=== PATIENT | male | born 1960 | race Two or more races ===

== ENCOUNTER 2017-12-19 14:20 | Inpatient (IN) | payer OTHER ==
[~2017-12-19] VITALS: Ht 160 cm; Wt 77.6 kg
--- NOTE | 2017-12-19 15:30 | NUR ---
RN NOTES RECEIVED REPORTS FROM JUAN COX ([facility]) FOR PATIENT GETTING ADMITTED UNDER THE CARE OF LISA BELLO NP DIAGNOSED WITH PNEUMONIA WITH POSSIBLE TUBERCULOSIS WITH MED SURG ACUITY. BED ZERO-ED OUT. ROOM PREPARED. ISOLATION KIT MADE AVAILABLE. AWAITING PATIENT ARRIVAL.
--- NOTE | 2017-12-19 18:10 | NUR ---
RN NOTES RECEIVED PATIENT VIA GURNEY ACCOMPANIED BY 2 EMT. TRANSPORTED TO BED, MADE COMFORTABLE, AWAKE AND ORIENTED, ABLE TO MAKE NEEDS KNOWN, BREATHING UNLABORED, ON NASAL CANNULA WITH 2 LPM, SATURATING AT 95%, DENIES ANY FORM OF PAIN AT THIS TIME, COMPLAINTS OF HUNGER, INFORMED HIM THAT FOOD WILL BE GIVEN SOON ORDERED IS OBTAINED FROM THE MD. VITAL SIGNS ARE FOLLOWS BP AT 118/ 68, HR AT 95, TEMP AT 98.3, RR AT 17. PHOTOS TAKEN. PATIENT KEEP CLEANED AND COMFORTABLE. ORIENTED TO FLOOR, CALL LIGHT PLACED WITHIN EASY REACH, SAFETY MEASURES IN PLACED.
[2017-12-19] MEDS ORDERED: TEMA15CA PO (18:12)
[2017-12-19] MEDS ORDERED: BLOO-668 IN (18:12)
[2017-12-19] MEDS ORDERED: ONDA4VIA52 IV (18:12)
[2017-12-19] MEDS ORDERED: INSU100V7 SQ (18:12)
[2017-12-19] MEDS ORDERED: DEXA1TAB2 PO (18:12)
[2017-12-19] MEDS ORDERED: ALBU1.257 IH (18:12)
[2017-12-19] MEDS ORDERED: IPRA0.2S9 IH (18:12)
[2017-12-19] MEDS ORDERED: DIVA-76 PO (18:12)
[2017-12-19] MEDS ORDERED: QUET25TA PO (18:12)
[2017-12-19] MEDS ORDERED: ALBU2.5V38 IH (18:12)
[2017-12-19] MEDS ORDERED: INSU100V27 SQ (18:12)
[2017-12-19] MEDS ORDERED: ACET-868 PO ×2 (18:12)
[2017-12-19] MEDS ORDERED: VANC1VIA2 IV (18:20)
[2017-12-19] MEDS ORDERED: PANT40TA4 PO (18:20)
[2017-12-19] MEDS ORDERED: POLY17PO4 PO (18:20)
[2017-12-19] MEDS ORDERED: LEVE500T9 PO (18:20)
[2017-12-19] MEDS ORDERED: ALEC150C PO (18:20)
[2017-12-19] MEDS ORDERED: METO25TA20 PO (18:20)
[2017-12-19] MEDS ORDERED: LORA0.5T PO (18:20)
[2017-12-19] MEDS ORDERED: NICO-677 TD (18:20)
[2017-12-19] MEDS ORDERED: SENN-168 PO (18:21)
--- NOTE | 2017-12-19 19:30 | NUR ---
RN NOTES ENDORSED PATIENT FOR CONTINUITY OF CARE, NO ACUTE CHANGES. NO SOB OR . NO COMPLAINTS OF PAIN, CALL LIGHT WITHIN REACH. SAFETY MEASURES IN PLACE, AWAITING FOR MD ORDERS. PAST MEDICAL HISTORY NOT OBTAINED-WILL ENDORSED TO INCOMING SHIFT.
[2017-12-19 20:00] VITALS: BP 117/68
--- NOTE | 2017-12-19 20:04 | NUR ---
RN INITIAL MS NOTE RECEIEVED PT ON AIRBORNE PRECAUTION, AOX4, ON NC@ 2LPM ,HX COPD, PT ADMIT FOR POSSIBLE TB, ACCORDING TO SHAQ RN ADMITTING ORDERS NOT INPUT YET, NOT SURE WHO IS ADMITTING PT, CHARLES NEW RN CALLED DR WEINSTEIN, DR WEINSTEIN OKAY TO ADMIT PT, PT UPSET NO FOOD, DR WEINSTEIN ORDERED 1800 MARLENE DIET, PT OFFERED TUNA AN D EGG SANDWICH REFUSED, SUGGESTED TO CALL SISTER TO ORDER FOOD FOR PT THROUGH DELIVERY, AWAITING FOR ADMITTING ORDERS.
[2017-12-19] MEDS ORDERED: IPRATROPIUM NEB FS 0.5 MG/2.5 ML AMPUL.NEB IH PRN (20:30)
[2017-12-19] MEDS ORDERED: LORAZEPAM 0.5 MG TABLET PO PRN (20:30)
[2017-12-19] MEDS ORDERED: ONDANSETRON HCL/PF 4 MG/2 ML VIAL IV PRN (20:30)
[2017-12-19] MEDS ORDERED: ONDANSETRON HCL/PF 4 MG/2 ML VIAL IVP PRN (21:00)
[2017-12-19] MEDS ORDERED: MAGNESIUM HYDROXIDE 30 ML UDC PO PRN (21:00)
[2017-12-19] MEDS ORDERED: Z GUARD REMEDY 2 OZ OINT TP PRN (21:00)
[2017-12-19] MEDS ORDERED: VANCOMYCIN 1 GM VIAL IV SCH (21:00)
[2017-12-19] MEDS ORDERED: MAG HYDROX/AL HYDROX/SIMETH 30 ML UDC PO PRN (21:00)
[2017-12-19] MEDS: LEVETIRACETAM (250 MG) 250 MG TABLET PO SCH (21:34)
[2017-12-19] MEDS: DEXAMETHASONE 1 MG TABLET PO SCH (21:34)
[2017-12-19] MEDS: SENNOSIDES 8.6 MG TABLET PO SCH (21:34)
[2017-12-19] MEDS: DIVALPROEX SODIUM 250 MG TABLET.DR PO SCH (21:35)
[2017-12-19] MEDS: QUETIAPINE FUMARATE 25 MG TABLET PO SCH (21:35)
[2017-12-19] MEDS ORDERED: DEXTROSE 50%-WATER 50 ML DISP.SYRIN IV PRN (22:00)
[2017-12-19] MEDS ORDERED: ENOXAPARIN SODIUM 100 MG/ML DISP.SYRIN SQ ONE (22:00)
[2017-12-19] MEDS: BLOOD SUGAR DIAGNOSTIC 1 EACH STRIP IN SCH (22:08)
[2017-12-19] MEDS: INSULIN GLARGINE, 100 UNIT/ML CARTRIDGE SQ SCH (22:17)
[2017-12-19 22:35] LABS: CALCIUM, SERUM 8.5 mg/dL (8.5-10.1); CREATININE 0.9 mg/dL (0.6-1.3); POTASSIUM 3.2 mmol/L (3.5-5.1)
[2017-12-19] MEDS: INSULIN REGULAR, HUMAN 100 UNIT/ML 3 ML VIAL SQ PRN (22:35)
[2017-12-19] MEDS ORDERED: PIPERACILLIN /TAZOBACTAM 3.375 G VIAL IV ONE (23:50)
[2017-12-19] MEDS: PIPERACILLIN /TAZOBACTAM 3.375 G in IV D5W 50 ML IV SCH (23:56)
[2017-12-20] MEDS ORDERED: ALBUTEROL FS 2.5 MG/0.5 ML VIAL.NEB NEB PRN (01:30)
[2017-12-20] MEDS ORDERED: PIPERACILLIN /TAZOBACTAM 3.375 G VIAL IV ONE (03:55)
[2017-12-20 04:00] VITALS: BP_SYST 117; BP_SYST 134; BP_DIAS 68; BP_DIAS 80
[2017-12-20] MEDS ORDERED: VANCOMYCIN 1 GM VIAL ONE (04:02)
[2017-12-20] MEDS ORDERED: VANCOMYCIN 1.5 GM in IV D5W 500 ML IV ONE (05:00)
[2017-12-20] MEDS: PIPERACILLIN /TAZOBACTAM 3.375 G in IV D5W 50 ML IV SCH ×4 (06:16→23:54)
--- NOTE | 2017-12-20 07:02 | NUR ---
RN MS CLOSING NOTE PT W/AFB SPUTUM COLLECTION, OFFERED TO SUCTION PT, REFUSED, INSISTED HE WILL BE ABLE TO PROVIDE SPUTUM, PT UNDERSTAND IMPORTANCE OF COLLECTION, TRIED TO COUGH, STIMULATED NAUSEA, HAD HEMOPYTSIS X2 BUT COLLECTED IN CONTAINER AND SPILLED IT ON THE FLOOR, UNABLE TO OBTAIN SAMPLE
[2017-12-20] MEDS ORDERED: FEE PK DOSING 1 MIN EA MC ONE (07:52)
[2017-12-20 08:00] VITALS: BP 130/75
[2017-12-20] MEDS: BLOOD SUGAR DIAGNOSTIC 1 EACH STRIP IN SCH ×4 (08:02→20:46)
[2017-12-20] MEDS: INSULIN REGULAR, HUMAN 100 UNIT/ML 3 ML VIAL SQ PRN ×4 (08:03→20:55)
[2017-12-20] MEDS: INSULIN GLARGINE, 100 UNIT/ML CARTRIDGE SQ SCH ×2 (08:04→20:52)
[2017-12-20] MEDS: METOPROLOL TARTRATE 25 MG TABLET PO SCH ×2 (08:09→16:05)
[2017-12-20] MEDS: POLYETHYLENE GLYCOL 3350 17 GM POWD.PACK PO SCH (08:09)
[2017-12-20] MEDS: DIVALPROEX SODIUM 250 MG TABLET.DR PO SCH ×2 (08:10→20:26)
[2017-12-20] MEDS: LEVETIRACETAM (250 MG) 250 MG TABLET PO SCH ×2 (08:10→20:26)
[2017-12-20] MEDS: PANTOPRAZOLE 40 MG TABLET.DR PO SCH (08:11)
[2017-12-20] MEDS: DEXAMETHASONE 1 MG TABLET PO SCH ×2 (08:11→20:26)
[2017-12-20] MEDS ORDERED: [UNRECOGNIZED DRUG - OTHER] PO SCH (09:00)
[2017-12-20] MEDS ORDERED: NICOTINE PATCH (21MG) 21 MG PATCH.TD24 TD SCH (09:00)
[2017-12-20] MEDS: NICOTINE PATCH (21MG) 21 MG PATCH.TD24 TD SCH (09:16)
[2017-12-20 10:03] LABS: BASOPHILS # (AUTO) 0.2 /CMM (0.0-0.2); BASOPHILS % (AUTO) 1.8 % (0.0-2.0); HEMATOCRIT 30 % (39-51); HEMOGLOBIN 10.2 g/dL (13.5-17.5); LYMPHOCYTES # (AUTO) 1.9 /CMM (0.8-4.8); LYMPHOCYTES % (AUTO) 14.5 % (20.0-44.0); MEAN CORPUSCULAR HGB CONC 34 g/dl (31.0-36.0); MEAN CORPUSCULAR VOLUME 92 fL (80-96); MONOCYTES # (AUTO) 0.4 /CMM (0.1-1.30); MONOCYTES % (AUTO) 2.8 % (2.0-12.0); NEUTROPHILS # (AUTO) 10.7 /CMM (1.8-8.9); NEUTROPHILS % (AUTO) 80.9 % (43.0-81.0); PLATELET COUNT (AUTO) 245 /CMM (150-450); RDW COEFFICIENT OF VARIATION 21.6 (11.5-15.0); RED BLOOD CELL COUNT(AUTO) 3.25 MIL/uL (4.5-6.0); WHITE BLOOD COUNT (AUTO) 13.2 K/uL (4.3-11.0)
[2017-12-20 10:13] LABS: CALCIUM, SERUM 8.5 mg/dL (8.5-10.1); CARBON DIOXIDE 29 mmol/L (21-32); CHLORIDE 99 mmol/L (98-107); CREATININE 0.8 mg/dL (0.6-1.3); GLUCOSE 311 mg/dL (74-106); MAGNESIUM 1.7 mg/dL (1.8-2.4); PHOSPHORUS 3.9 mg/dL (2.5-4.9); POTASSIUM 3.7 mmol/L (3.5-5.1); SODIUM SERUM 139 mmol/L (136-145); UREA NITROGEN, BLOOD 16 mg/dL (7-18)
[2017-12-20 10:28] LABS: CHOLESTEROL 322 mg/dL (<200); HDL CHOLESTEROL 45 mg/dL (40-60); LDL 143 mg/dL (0-99)
[2017-12-20 11:02] LABS: TRIGLYCERIDES 1281 mg/dL (30-150)
--- NOTE | 2017-12-20 11:40 | NUR ---
RN NOTES LACTIC ACID OF 4.1 RELAYED TO LISA BELLO NP, NO NEW ORDER AT THIS TIME. PER MD, PATIENT HAD ELEVATED LACTIC AT VIKING, NOT FROM INFECTION PER DR. MOSQUEDA. CLARIFIED ALECTINIB MEDICATION, PER SISTER AND BHARGAVI'S RECORD, PATIENT TAKES 4 CAPSULES BID. WAITING FOR ORDER.
[2017-12-20] MEDS: ENOXAPARIN SODIUM 100 MG/ML DISP.SYRIN SQ SCH ×2 (12:06→20:31)
[2017-12-20] MEDS: Magnesium 1GM/D5W 100ML PREMIX 100 ML IV SCH ×2 (13:09→14:41)
[2017-12-20] MEDS: [UNRECOGNIZED DRUG - OTHER] PO SCH ×2 (13:16→16:05)
[2017-12-20 13:58] LABS: BILIRUBIN,DIRECT 0.2 mg/dL (0.0-0.2); BILIRUBIN,TOTAL 0.7 mg/dL (0.2-1.0)
--- NOTE | 2017-12-20 14:58 | NUR ---
RN NOTES LACTIC ACID 5.1 RELAYED TO LISA BELLO CORE MAKER HELPER, NO NEW ORDER AT THIS TIME. WAITING FOR DR. MOSQUEDA'S CONSULT. PATIENT IN BED, NO DISTRESS NOTED.
[2017-12-20 15:53] VITALS: BP 121/60
[2017-12-20 16:00] VITALS: BP 109/53
[2017-12-20] MEDS: VANCOMYCIN 1.5 GM in IV D5W 500 ML IV SCH (16:04)
--- NOTE | 2017-12-20 18:11 | NUR ---
RN NOTES PATIENT A/OX3, NO DISTRESS NOTED, PATIENT SEEN BY DR. MOSQUEDA MADE AWARE OF LACTIC ACID RESULTS, NO NEW ORDER AT THIS TIME. CONTINUE ON IV ATB PER MD. BREATHING EVEN AND UNLABORED, ASSISTED WITH ADLS, SKIN CARE PROVIDED, NO SPUTUM OBTAINED DURING THIS SHIFT, PER PATIENT HE WILL KEEP TRYING. CONTAINER AT BEDSIDE. NEEDS ATTENDED TO AND MET, CALL LIGHT WITHIN REACH, WILL ENDORSE TO BOOT MAKER FOR LELAND.
--- NOTE | 2017-12-20 19:36 | NUR ---
TELE/RN OPENING NOTES RECEIVED PATIENT IN THE ROOM, SITTING IN THE BED, ON THE PHONE WITH FAMILY MEMBER, ON OXYGEN VIA NC AT 2L, RESPIRATIONS EVEN AND UNLABORED, SKIN WARM TO TOUCH, ALERT, ORIENTED X3, ABLE TO VERBALIZE NEEDS AND OBSERVED SOME WEAKNESS IN KEFT SIDE M ABLE TO DO SELF CARE WITH SOME SUPERVISION, REPORTED THAT WILL BE PARTICIPATIVE AND INVOLVE WITH CARE AND WILL PROVIDE CARE, INSTRUCT TO CALL FOR ASSISTANCE, PLAN OF CARE PROVIDED AND AGREED. BED IN LOCK POSITON, VERBALIZED SAFETY ,MEASURES THAT HE WILL BE SAFE AND AWARE OF ANY OF HIS LIMITATIONS. RECEIVED ENDORSEMENT FROM AM RN FOR LELAND.
[2017-12-20 20:00] VITALS: BP_SYST 121; BP_SYST 93; BP_DIAS 36; BP_DIAS 60
[2017-12-20] MEDS: QUETIAPINE FUMARATE 25 MG TABLET PO SCH (21:07)
[2017-12-20] MEDS: ATORVASTATIN 10 MG TABLET PO SCH (21:07)
[2017-12-20] MEDS: SENNOSIDES 8.6 MG TABLET PO SCH (21:07)
--- NOTE | 2017-12-20 22:07 | NUR ---
tele/rn notes PATIENT REQUESTING FOR MEDICATION TO HELP HIM SLEEP, WITH NEEDED RESTORIL 15 MG TO BE GIVEN,
[2017-12-20] MEDS: TEMAZEPAM 15 MG CAPSULE PO PRN (22:09)
[2017-12-20] MEDS: ACETAMINOPHEN 325 MG TABLET PO PRN (22:18)
--- NOTE | 2017-12-20 22:21 | NUR ---
TELE/RN NOTES PATIETN REPORTED PAIN GENERALIZED, REQUESTED FOR TYLENOL.
--- NOTE | 2017-12-21 01:39 | NUR ---
TELE/RN NOTES PATIENT REQUIRE EXTENSIVE ASSISTANCE AND MONITORING FOR SAFETY AWARENESS, INSTRUCT , OM OXYGEN VIA NC FOR COMFORT, ASSIST WITH CARE, KEEP ROOM CLUTTER FREE. AND TUBINGS PROPERLY PLACED., PATIENT ASSISTED.
[2017-12-21] MEDS: VANCOMYCIN 1.5 GM in IV D5W 500 ML IV SCH ×2 (03:55→16:07)
[2017-12-21 04:00] VITALS: BP 119/70
--- NOTE | 2017-12-21 04:58 | NUR ---
MS/RN NOTES PATIENT SPUTUM TO COLLECT FOR AFB, RT AND RN ASSIST BUT PATIENT VERBALIZED BEING TIRED AND WOULD NEED SOME SLEEP AT THIS TIME PATIENT PREFERRED TO HAVE IT COLLECTED LATER.
[2017-12-21 05:02] LABS: BASOPHILS # (AUTO) 0.1 /CMM (0.0-0.2); BASOPHILS % (AUTO) 0.8 % (0.0-2.0); EOSINOPHILS % (AUTO) 0.2 % (0.0-6.0); HEMATOCRIT 26 % (39-51); HEMOGLOBIN 9.1 g/dL (13.5-17.5); LYMPHOCYTES # (AUTO) 2.2 /CMM (0.8-4.8); LYMPHOCYTES % (AUTO) 21.4 % (20.0-44.0); MEAN CORPUSCULAR HGB CONC 35 g/dl (31.0-36.0); MEAN CORPUSCULAR VOLUME 92 fL (80-96); MONOCYTES # (AUTO) 0.3 /CMM (0.1-1.30); MONOCYTES % (AUTO) 3.2 % (2.0-12.0); NEUTROPHILS # (AUTO) 7.7 /CMM (1.8-8.9); NEUTROPHILS % (AUTO) 74.4 % (43.0-81.0); PLATELET COUNT (AUTO) 218 /CMM (150-450); RDW COEFFICIENT OF VARIATION 22.1 (11.5-15.0); RED BLOOD CELL COUNT(AUTO) 2.82 MIL/uL (4.5-6.0); WHITE BLOOD COUNT (AUTO) 10.3 K/uL (4.3-11.0)
[2017-12-21 05:11] LABS: CREATININE 0.7 mg/dL (0.6-1.3); MAGNESIUM 2.1 mg/dL (1.8-2.4); POTASSIUM 3.7 mmol/L (3.5-5.1)
--- NOTE | 2017-12-21 05:16 | NUR ---
MS/RN NOTES CRITICAL GLUCOSE LEVEL REPORTED BY LAB OF 354. PATIENT HAD SNACK OF PEANUT BUTTER AND BREAD BEFORE THE LAB DRAW, HAD SNACKS LATE EVENING , BLOD SUGAR CHECK AND GIVEN ORDERED LANTUS BEFORE BEDTIME,WILL MONITOR.
[2017-12-21] MEDS: PIPERACILLIN /TAZOBACTAM 3.375 G in IV D5W 50 ML IV SCH ×4 (06:11→22:59)
[2017-12-21] MEDS: BLOOD SUGAR DIAGNOSTIC 1 EACH STRIP IN SCH ×4 (06:20→22:19)
--- NOTE | 2017-12-21 06:21 | NUR ---
MS/RN NOTES RECHECKED BLOOD SUGAR AT 335, WILL ENDORSE TO AM RN FOR RESULT, PATIENT ASLEEP , EASILY SOUSES AND ALERT, ORIENTED, INFORMED REGARDING ELEVATED BLOOD SUGAR MADE AWARE AND WILL HAVE NEEDED INSULIN TO REPLACE BEFORE BREAKFAST.
--- NOTE | 2017-12-21 06:40 | NUR ---
101 M/S RN NOTES PATIENT ATTENDED TO NEEDS AT ALL TIMES, MONITORED FOR SAFETY, INFECTION CONTROL MEASURES, HYPO/HYPERGLYCEMIA, LIGHT SLEEPER AND VERBALIZED NEEDS AT ALL TIMES, INSTRUCTED TO CALL FOR ASSISTANCE, BED LOCKED, COMFORT MEASURES PROVIDED, OFFERED AND PROVIDED SNACKS, KEPT CLEAN AND DRY. WILL EMDORSE TO AM RN FOR LELAND. REQUIRE EXTENSIVE ASSISTANCE, ON OXYGEN MONITORED , RESPIRATIONS EVEN AND UNLABORED
--- NOTE | 2017-12-21 07:30 | NUR ---
MS RN OPENING NOTES RECEIVED PATIENT IN STABLE CONDITION. IN NO APPARENT DISTRESS. BEDSIDE RAILS ARE UPX2. BED IS LOCKED AND LOWERED. CALL LIGHT IS WITHIN REACH. IV LINE IS INTACT AND PATENT. WILL CONTINUE TO MONITOR PATIENT
[2017-12-21 08:00] VITALS: BP 142/93
[2017-12-21] MEDS: POLYETHYLENE GLYCOL 3350 17 GM POWD.PACK PO SCH (08:49)
[2017-12-21] MEDS: PANTOPRAZOLE 40 MG TABLET.DR PO SCH (08:49)
[2017-12-21] MEDS: LEVETIRACETAM (250 MG) 250 MG TABLET PO SCH ×2 (08:49→21:52)
[2017-12-21] MEDS: DEXAMETHASONE 1 MG TABLET PO SCH ×2 (08:49→21:52)
[2017-12-21] MEDS: DIVALPROEX SODIUM 250 MG TABLET.DR PO SCH ×2 (08:50→21:52)
[2017-12-21] MEDS: METOPROLOL TARTRATE 25 MG TABLET PO SCH ×2 (08:50→16:08)
[2017-12-21] MEDS: ENOXAPARIN SODIUM 100 MG/ML DISP.SYRIN SQ SCH ×2 (08:51→21:50)
[2017-12-21] MEDS: INSULIN GLARGINE, 100 UNIT/ML CARTRIDGE SQ SCH ×2 (08:52→22:30)
[2017-12-21] MEDS: INSULIN REGULAR, HUMAN 100 UNIT/ML 3 ML VIAL SQ PRN ×4 (08:52→22:32)
[2017-12-21] MEDS: [UNRECOGNIZED DRUG - OTHER] PO SCH ×2 (08:53→16:08)
[2017-12-21] MEDS: NICOTINE PATCH (21MG) 21 MG PATCH.TD24 TD SCH (08:53)
[2017-12-21] MEDS: Fenofibrate 48 MG TABLET PO SCH (09:17)
[2017-12-21] MEDS: ACETAMINOPHEN 325 MG TABLET PO PRN (11:33)
[2017-12-21 12:00] VITALS: BP 142/93
[2017-12-21 16:03] VITALS: BP 142/93
--- NOTE | 2017-12-21 18:27 | NUR ---
MS RN CLOSING NOTES PATIENT IS IN STABLE CONDITION. IN NO APPARENT DISTRESS. BEDSIDE RAILS ARE UPX2. BED IS LOCKED AND LOWERED. CALL LIGHT IS WITHIN REACH. IV LINE IS INTACT AND PATENT. ALL NEEDS WERE MET. WILL ENDORSE CARE TO CLAM SORTER NURSE FOR LELAND.
--- NOTE | 2017-12-21 19:20 | NUR ---
KENNY ME OPENING NOTES RECEIVED PATIENT IN BED SLEEPING BUT EASILY AROUSABLE, RESPIRATIONS EVEN AND UNLABORED WITH EQUAL RISE AND FALL OF CHEST, ON 02 VIA NC AT 2L. NO APPARENT DISTRESS PRESENT, NO FACIAL GRIMACING OR MOANS PRESENT, APPEARS COMFORTABLE, ON AIRBORNE ISOLATION PRECAUTIONS TO R/O TB WITH HX OF PNA, IV SITE TO RIGHT WRIST #20 G INTACT AND PATENT, NO REDNESS , NO INFILTRATION PRESENT, URINAL AT BEDSIDE, PATIENT MADE AWARE OF SPUTUM COLLECTION PER PATIENT, " IS NOT HAVING MUCH SPUTUM AT THIS TIME BUT WILL TRY." ORIENTED TO STAFF AND CALL LIGHT AND KEPT WITHIN REACH, SAFETY PRECAUTIONS IN PLACE, LOW BED AND LOCKED, BED ALARM IN PLACE, ALL NEEDS ATTENDED AT THIS TIME, WILL CONTINUE TO MONITOR. Addendum: 12/22/17 at 0627 by JAMIE LOPEZ RN KENNY MS NOTES
[2017-12-21 20:00] VITALS: BP 104/64
--- NOTE | 2017-12-21 21:00 | NUR ---
KENNY MS NOTES PATIENT HAD AN EPISODE OF DECREASED SATURATION TO 81% ON 3L RT CALLED NON REBREATHER MASK PLACE 15L PATIENT 02 INCREASED TO 99%. PATIENT IS ALERT AND RESPONSIVE, STATES " WASNT AWARE AND DIDNT EVEN FEEL OR NOTICE A DIFFERENCE." WILL CONTINUE TO MONITOR AND NOTIFY MD Addendum: 12/22/17 at 0634 by JAMIE LOPEZ RN PATIENT HAD AN EPISODE OF SPO2 DECREASING TO 81%.
--- NOTE | 2017-12-21 21:30 | NUR ---
RN MS NOTES CALLED AND SPOKE TO DR. PALOMARES TO REPORT CHANGE AND PATIENT CURRENT CONDITION. WITH NEW ORDER FOR ABG. AND FOLLOW UP RESULTS WITH [employer]. DR. PAREDES. ORDERS NOTED AND CARRIED OUT. PATIENT CURRENTLY REMAINS STABLE AT THIS TIME, NO APPARENT DISTRESS ALERT AND OREINTED x4. REQUESTING TO EAT SANDWHICH.
[2017-12-21] MEDS: SENNOSIDES 8.6 MG TABLET PO SCH (21:52)
[2017-12-21] MEDS: ATORVASTATIN 10 MG TABLET PO SCH (21:52)
[2017-12-21] MEDS: QUETIAPINE FUMARATE 25 MG TABLET PO SCH (21:59)
--- NOTE | 2017-12-21 22:00 | NUR ---
RN MS NOTES ASSISTED PATIENT REQUESTING TO SIT ON EDGE OF BED AND EAT, REQUESTING FOR NASAL CANNULA, MADE PATIENT AWARE OF PURPOSE FOR NON REBREATHER MASK DUE TO DESAT , PATIENT IS STRONGLY INSISTING TO PLACE NC TO EAT, O2 SAT VIA NC ON 5 L IS 90-91% BED ALARM IN PLACE,
[2017-12-21 22:04] LABS: ABG BASE EXCESS 9.8 mmol/L; ABG OXYGEN SATURATION 96.4 % (92.0-98.5); ABG PCO2 54.2 mmHg (35.0-45.0); ABG PH 7.433 (7.350-7.450); ABG PO2 108.9 mmHg (75.0-100.0); AaDO2 404.6 mmHg; COHb 0.2 % (0.5-1.5); MetHb 0.7 % (0.0-1.5); O2Hb 95.5 % (94.0-97.0); SITE, ABG Left Radial; VENT MODE, BG NRB
--- NOTE | 2017-12-21 22:30 | NUR ---
KENNY MS NOTES CALLED DR. PAREDES MADE AWARE OF PATIENT CHANGE OF CONDITION AND RESULTED ABG PC02 54.2 H PO2 108.9 ABG HEMOGLOBIN 9.4L CARBOXYHEMOGLOBIN 0.2L PATIENT IS AWARE ALERT RESPONSIVE. AND CURRENT SAT IS 94-95% ON 19 L NON REBREATHER NO NEW ORDERS AT THIS TIME PER TREND 02 AND MONITOR 02 SAT. Addendum: 12/22/17 at 0638 by JAMIE LOPEZ RN CLARIFICATION MADE PATIENT AWARE ABG TAKEN WHEN PATIENT ON 15L NON REBREATHER MASK. DISREGARD 19L
[2017-12-21] MEDS: HYDROCODONE/APAP 5/325MG 1 EACH TABLET PO PRN (22:57)
--- NOTE | 2017-12-22 | NUR ---
KENNY MS NOTES PATIENT DID NOT WANT PICTURE TAKEN TO LEFT LEG, EXPLAINED PURPOSE OF PICTURE. PATIENT DOES NOT WANT DRESSING REMOVED AT THIS TIME SINCE IT WAS DONE IN AM WAS ABLE TO TAKE PICTURE OF RIGHT GREAT TOE AND RIGHT LOWER EXTREMITY. Addendum: 12/22/17 at 0438 by JAMIE LOPEZ RN DISREGARD WRONG ENTRY
--- NOTE | 2017-12-22 | NUR ---
RN MS NOTES PATIENT REFUSED FRIDAY PICTURES EXPLAINED PURPOSE OF PICTURES PER PATIENT STATED " I WOULD LIKE TO HAVE IT DONE IN THE AM."
[2017-12-22 04:00] VITALS: BP 107/66
[2017-12-22] MEDS: VANCOMYCIN 1.5 GM in IV D5W 500 ML IV SCH (04:19)
[2017-12-22] MEDS: PIPERACILLIN /TAZOBACTAM 3.375 G in IV D5W 50 ML IV SCH ×4 (06:05→23:37)
--- NOTE | 2017-12-22 06:27 | NUR ---
RN MS CLOSING NOTES PATIENT IN BED SLEEPING BUT EASILY AROUSABLE, RESPIRATIONS EVEN AND UNLABORED WITH EQUAL RISE AND FALL OF CHEST, ON 02 VIA NC AT 2L SP02 AT 96%. NO APPARENT DISTRESS PRESENT, NO FACIAL GRIMACING OR MOANS PRESENT, APPEARS COMFORTABLE, ON AIRBORNE ISOLATION PRECAUTIONS TO R/O TB WITH HX OF PNA, IV SITE TO RIGHT WRIST #20 G INTACT AND PATENT, NO REDNESS , NO INFILTRATION PRESENT, URINAL AT BEDSIDE, PATIENT MADE AWARE OF SPUTUM COLLECTION PATIENT HOWEVER DID NOT PROVIDE SPECIMEN NEEDED , CALL LIGHT KEPT WITHIN REACH, SAFETY PRECAUTIONS IN PLACE, LOW BED AND LOCKED, BED ALARM IN PLACE, ALL NEEDS ATTENDED AT THIS TIME, DOES NOT APPEAR TO HAVE ANY EPISODE OF DESATURATION AT THIS TIME. WILL CONTINUE TO MONITOR AND ENDORSE TO NEXT SHIFT. BS TAKEN HOWEVER WILL NOT COVER DUE TO BREAKFAST TRAY NOT AT BEDSIDE TO PREVENT EPISODE OF HYPOGLYCEMIA WILL ENDORSE TO NEXT SHIFT.
[2017-12-22 06:44] LABS: CALCIUM, SERUM 8.1 mg/dL (8.5-10.1); CREATININE 0.8 mg/dL (0.6-1.3); POTASSIUM 3.8 mmol/L (3.5-5.1)
--- NOTE | 2017-12-22 07:10 | NUR ---
RN MS OPENING NOTES PATIENT IN BED SLEEPING BUT EASILY AROUSABLE, RESPIRATIONS EVEN AND UNLABORED , ON 02 VIA NC AT 2L SP02 AT 94%. NO APPARENT DISTRESS PRESENT,NO C/O PAIN PRESENT, APPEARS COMFORTABLE, ON AIRBORNE ISOLATION PRECAUTIONS TO R/O TB WITH HX OF PNA, IV SITE TO RIGHT WRIST #20 G INTACT AND PATENT, NO REDNESS , NO INFILTRATION PRESENT, URINAL AT BEDSIDE, PATIENT MADE AWARE OF SPUTUM COLLECTION . CALL LIGHT KEPT WITHIN REACH, SAFETY PRECAUTIONS IN PLACE, LOW BED AND LOCKED, BED ALARM IN PLACE, ALL NEEDS ATTENDED AT THIS TIME.WILL CONTINUE TO MONITOR.
[2017-12-22] MEDS: BLOOD SUGAR DIAGNOSTIC 1 EACH STRIP IN SCH ×4 (07:45→21:51)
[2017-12-22] MEDS: PANTOPRAZOLE 40 MG TABLET.DR PO SCH (07:45)
[2017-12-22 08:00] VITALS: BP 109/76
[2017-12-22] MEDS: INSULIN REGULAR, HUMAN 100 UNIT/ML 3 ML VIAL SQ PRN ×4 (08:07→21:33)
[2017-12-22] MEDS: NICOTINE PATCH (21MG) 21 MG PATCH.TD24 TD SCH (08:49)
[2017-12-22] MEDS: DEXAMETHASONE 1 MG TABLET PO SCH ×2 (08:49→21:12)
[2017-12-22] MEDS: Fenofibrate 48 MG TABLET PO SCH (08:49)
[2017-12-22] MEDS: DIVALPROEX SODIUM 250 MG TABLET.DR PO SCH ×2 (08:50→21:14)
[2017-12-22] MEDS: METOPROLOL TARTRATE 25 MG TABLET PO SCH ×2 (08:50→17:16)
[2017-12-22] MEDS: POLYETHYLENE GLYCOL 3350 17 GM POWD.PACK PO SCH (08:50)
[2017-12-22] MEDS: LEVETIRACETAM (250 MG) 250 MG TABLET PO SCH ×2 (08:50→21:15)
[2017-12-22] MEDS: [UNRECOGNIZED DRUG - OTHER] PO SCH ×2 (08:51→17:17)
[2017-12-22] MEDS: ENOXAPARIN SODIUM 100 MG/ML DISP.SYRIN SQ SCH (08:52)
[2017-12-22] MEDS: INSULIN GLARGINE, 100 UNIT/ML CARTRIDGE SQ SCH ×2 (09:09→21:32)
[2017-12-22] MEDS: HYDROCODONE/APAP 5/325MG 1 EACH TABLET PO PRN ×2 (09:36→15:50)
--- NOTE | 2017-12-22 10:00 | NUR ---
RN NOTES SEEN BY ,UPDATED PATIENT CONDITION.WILL CONTINUE TO MONITOR.
--- NOTE | 2017-12-22 13:36 | NUR ---
RN NOTES SEEN BY KATYA GONZALEZ.UPDATED ABOUT PATIENT CONDITION.GOT NEW ORDERS.
[2017-12-22 14:00] VITALS: BP 109/76
--- NOTE | 2017-12-22 15:14 | NUR ---
RN NOTES PATIENT WAS UPSET WHILE GIVING CARE WITH STOCK TRADER,ASKED TO BACK TO BED FROM SITTING AT THE EDGE OF BED BECAUSE OF LOW O2 SAT ,PATIENT REFUSED AND TOLD THAT WANT TO SIT AT THE EDGE OF THE BED FOR DIGESTING FOOD.PUT HIM ON MASK WITH O2 6L/MIN.SAT -94%,WILL CONTINUE TO MONITOR.
[2017-12-22 16:00] VITALS: BP 119/68
[2017-12-22] MEDS ORDERED: VANCOMYCIN 1.25 GM in IV D5W 500 ML IV SCH (17:00)
--- NOTE | 2017-12-22 19:20 | NUR ---
RN MS CLOSING NOTES PATIENT IN BED AXOX4. RESPIRATIONS EVEN AND UNLABORED , ON 02 VIA NC AT 4L SP02 AT 94%. NO APPARENT DISTRESS PRESENT,NO C/O PAIN PRESENT, APPEARS COMFORTABLE, ON AIRBORNE ISOLATION PRECAUTIONS TO R/O TB WITH HX OF PNA, IV SITE TO RIGHT WRIST #20 G INTACT AND PATENT, NO REDNESS , NO INFILTRATION PRESENT, URINAL AT BEDSIDE. CALL LIGHT KEPT WITHIN REACH, SAFETY PRECAUTIONS IN PLACE, LOW BED AND LOCKED, BED ALARM IN PLACE, ALL NEEDS ATTENDED AT THIS TIME.SEEN BY ,DISCUSSED PLAN OF CARE WITH THE PATIENT.ENDORSED TO PM NURSE FOR LELAND.
[2017-12-22 20:00] VITALS: BP 126/80
--- NOTE | 2017-12-22 20:00 | NUR ---
MS RN NOTE PT IN BED AWAKE. A/O X 4, NO SOB, NO DISTRESS OR DISCOMFORT NOTED. DENIES PAIN. REMAIN IN ISOLATION FOR R/O TB, ISOLATION PRECAUTIONS TAKEN. ON 4L VIA N/C O2 SAT 95%. RT WRIST #20 G S/L INTACT AND PATENT. ALL NEEDS ATTENDED. SIDE RAILS UP X 3 AND CALL LIGHT WITHIN REACH. VSS. CONTINUE TO MONITOR HIM.
[2017-12-22 20:54] LABS: INR 1.04 (0.87-1.13)
[2017-12-22] MEDS: SENNOSIDES 8.6 MG TABLET PO SCH (21:13)
[2017-12-22] MEDS: ATORVASTATIN 10 MG TABLET PO SCH (21:14)
[2017-12-22] MEDS: QUETIAPINE FUMARATE 25 MG TABLET PO SCH (21:14)
[2017-12-22] MEDS: TEMAZEPAM 15 MG CAPSULE PO PRN (21:15)
[2017-12-22] MEDS: ENOXAPARIN SODIUM 80 MG/0.8 ML DISP.SYRIN SQ SCH (21:16)
[2017-12-22] MEDS: WARFARIN SODIUM 5 MG TABLET PO SCH (21:19)
[2017-12-23 04:00] VITALS: BP 108/66
[2017-12-23 04:22] VITALS: BP 108/66
--- NOTE | 2017-12-23 05:00 | NUR ---
MS RN NOTE BED BATH GIVEN. ALSO INFORMED WE NEED SPUTUM SPECIMEN. PT STATES "LEAVE THE CUP I WILL DO IT LATER".
[2017-12-23] MEDS: PIPERACILLIN /TAZOBACTAM 3.375 G in IV D5W 50 ML IV SCH ×4 (05:20→23:32)
--- NOTE | 2017-12-23 06:26 | NUR ---
MS RN NOTE PT IN BED ASLEEP, AROSUABLE. NO DISTRESS OR DISCOMFORT NOTED. DENIES PAIN. NS TKO RT WRIST, NO S/S OF INFILTRATION NOTED. NO SPUTUM SPECIMEN YET GIVEN BY THE PT, REMINDED PT. SIDE RAILS UP X 3 AND CALL LIGHT WITHIN REACH. VSS. WILL ENDORSE TO DAY SHIFT NURSE FOR CONTINUE TO CARE.
[2017-12-23] MEDS: BLOOD SUGAR DIAGNOSTIC 1 EACH STRIP IN SCH ×4 (07:31→22:01)
[2017-12-23] MEDS: PANTOPRAZOLE 40 MG TABLET.DR PO SCH (07:43)
[2017-12-23] MEDS ORDERED: SODIUM CL FOR INHALATION 3% 15 ML VIAL.NEB IH ONE (08:00)
[2017-12-23] MEDS: POLYETHYLENE GLYCOL 3350 17 GM POWD.PACK PO SCH (08:18)
[2017-12-23] MEDS: LEVETIRACETAM (250 MG) 250 MG TABLET PO SCH ×2 (08:18→22:01)
[2017-12-23] MEDS: NICOTINE PATCH (21MG) 21 MG PATCH.TD24 TD SCH (08:18)
[2017-12-23] MEDS: ENOXAPARIN SODIUM 80 MG/0.8 ML DISP.SYRIN SQ SCH ×2 (08:18→22:24)
[2017-12-23] MEDS: DEXAMETHASONE 1 MG TABLET PO SCH ×2 (08:19→22:00)
[2017-12-23] MEDS: DIVALPROEX SODIUM 250 MG TABLET.DR PO SCH ×2 (08:19→22:00)
[2017-12-23] MEDS: METOPROLOL TARTRATE 25 MG TABLET PO SCH ×2 (08:19→16:29)
[2017-12-23] MEDS: [UNRECOGNIZED DRUG - OTHER] PO SCH ×2 (08:20→16:30)
[2017-12-23] MEDS: Fenofibrate 48 MG TABLET PO SCH (08:20)
[2017-12-23 08:22] VITALS: BP 125/85
[2017-12-23] MEDS: INSULIN REGULAR, HUMAN 100 UNIT/ML 3 ML VIAL SQ PRN ×3 (08:23→16:40)
[2017-12-23] MEDS: INSULIN GLARGINE, 100 UNIT/ML CARTRIDGE SQ SCH ×2 (08:23→22:24)
[2017-12-23 10:23] LABS: BASOPHILS # (AUTO) 0.1 /CMM (0.0-0.2); BASOPHILS % (AUTO) 1.2 % (0.0-2.0); HEMATOCRIT 26 % (39-51); HEMOGLOBIN 8.8 g/dL (13.5-17.5); LYMPHOCYTES # (AUTO) 2.8 /CMM (0.8-4.8); MEAN CORPUSCULAR HGB CONC 34 g/dl (31.0-36.0); MEAN CORPUSCULAR VOLUME 92 fL (80-96); MONOCYTES # (AUTO) 0.6 /CMM (0.1-1.30); MONOCYTES % (AUTO) 4.9 % (2.0-12.0); NEUTROPHILS # (AUTO) 8.1 /CMM (1.8-8.9); NEUTROPHILS % (AUTO) 69.9 % (43.0-81.0); PLATELET COUNT (AUTO) 239 /CMM (150-450); RDW COEFFICIENT OF VARIATION 22.9 (11.5-15.0); RED BLOOD CELL COUNT(AUTO) 2.86 MIL/uL (4.5-6.0); WHITE BLOOD COUNT (AUTO) 11.6 K/uL (4.3-11.0)
[2017-12-23 10:33] LABS: ALBUMIN 2.5 g/dL (3.4-5.0); BILIRUBIN,DIRECT 0.2 mg/dL (0.0-0.2); BILIRUBIN,TOTAL 0.9 mg/dL (0.2-1.0); CALCIUM, SERUM 8.6 mg/dL (8.5-10.1); CREATININE 0.7 mg/dL (0.6-1.3); INR 0.96 (0.87-1.13); MAGNESIUM 1.7 mg/dL (1.8-2.4); PHOSPHORUS 3.6 mg/dL (2.5-4.9); POTASSIUM 3.8 mmol/L (3.5-5.1); TOTAL PROTEIN, SERUM 5.7 g/dL (6.4-8.2)
[2017-12-23 10:42] LABS: FERRITIN 171 ng/mL (8-388)
[2017-12-23 10:54] LABS: IRON, SERUM 97 ug/dl (50-175); TOTAL IRON BINDING CAPACITY 274 ug/dl (250-450)
[2017-12-23] MEDS: HYDROCODONE/APAP 5/325MG 1 EACH TABLET PO PRN ×3 (12:00→21:13)
[2017-12-23 16:11] VITALS: BP 116/69
[2017-12-23] MEDS: WARFARIN SODIUM 5 MG TABLET PO SCH (16:29)
--- NOTE | 2017-12-23 17:56 | NUR ---
M/S RN - Midline Insertion RUE midline placed for poor venous access, ok to use per PICC line KENNY [facility]. Patient tolerated procedure well.
--- NOTE | 2017-12-23 18:47 | NUR ---
M/S RN - Notes Patient alert and oriented throughout the shift, no apparent distress, generalized pain well controlled with [place] 1 tab. Sputum collected for AFB#3 in the morning but was rejected by lab due to insufficient amount. Records of CT brain and chest obtained from [facility] and placed in the chart for Dr. Burton's reference. Continue Zosyn for pneumonia. All needs attended and met. Fall and airborne precautions maintained. Sister Maia at bedside updated on patient's condition. Will continue with current medical management.
--- NOTE | 2017-12-23 19:30 | NUR ---
MS/RN OPENING NOTES PT RECEIVED AWAKE, SITTING UP IN BED. SISTER AT BEDSIDE. ON 4L O2 VIA NC, BREATHING EVEN AND UNLABORED. NO S/S OF DISTRESS NOTED. DENIES SOB OR PAIN AT THIS TIME. STEVE MIDLINE IN PLACE RUNNING NS TKO. SISTER PROVIDED COPY OF DPOA PAPERWORK, COPY MADE AND PLACED IN THE CHART. BED IN LOW/LOCKED POSITION WITH CALL LIGHT IN REACH. BILATERAL UPPER SIDE RAILS IN PLACE. WILL CONTINUE TO MONITOR
[2017-12-23 20:00] VITALS: BP_SYST 104; BP_DIAS 64; BP_DIAS 69
[2017-12-23] MEDS: ATORVASTATIN 10 MG TABLET PO SCH (22:00)
[2017-12-23] MEDS: SENNOSIDES 8.6 MG TABLET PO SCH (22:00)
[2017-12-23] MEDS: QUETIAPINE FUMARATE 25 MG TABLET PO SCH (22:00)
[2017-12-23] MEDS: TEMAZEPAM 15 MG CAPSULE PO PRN (22:05)
--- NOTE | 2017-12-23 23:00 | NUR ---
MS/RN NOTES PT EASILY AGITATED BECAUSE WE DO NOT HAVE PBJ SANDWICHES. OFFERED SNACKS AVAILABLE ON UNIT. PT INCREASINGLY UPSET AND ORDERS PIZZA, DESPITE MULTIPLE ATTEMPTS TO EDUCATE PT ON DIET COMPLIANCE. PEANUT ROASTER MADE AWARE. PT PAID IN BURKS $13. $1 LEFT IN [place]
[2017-12-24] MEDS: HYDROCODONE/APAP 5/325MG 1 EACH TABLET PO PRN (02:38)
[2017-12-24 04:00] VITALS: BP 117/63
[2017-12-24] MEDS: PIPERACILLIN /TAZOBACTAM 3.375 G in IV D5W 50 ML IV SCH ×3 (06:06→17:21)
[2017-12-24 07:28] LABS: CALCIUM, SERUM 8.2 mg/dL (8.5-10.1); CREATININE 0.9 mg/dL (0.6-1.3); POTASSIUM 4.2 mmol/L (3.5-5.1)
--- NOTE | 2017-12-24 07:35 | NUR ---
RN MS NOTES PT AWAKE, SITTING IN BED, ALERT AND ORIENTED, DENIES PAIN, NOT IN DISTRESS, CALL LIGHT WITHIN REACH, ISOLATION PRECAUTIONS OBSERVED, NEEDS ATTENDED.
--- NOTE | 2017-12-24 07:35 | NUR ---
MS/RN CLOSING NOTES PT AWAKE. REMAINS ON 4L O2 VIA NC, BREATHING EVEN AND UNLABORED. NO S/S OF DISTRESS NOTED. DENIES SOB OR PAIN AT THIS TIME. STEVE MIDLINE IN PLACE RUNNING NS TKO. ALL NEEDS MET. PAIN MANAGED THROUGHOUT SHIFT. KEPT PT COMFORTABLE POSSIBLE DURING SHIFT. BED IN LOW/LOCKED POSITION WITH CALL LIGHT IN REACH. SIDE RAILS UP X3. ENDORSED TO DAY SHIFT RN LELAND.
[2017-12-24 08:00] VITALS: BP 111/79
[2017-12-24] MEDS: INSULIN REGULAR, HUMAN 100 UNIT/ML 3 ML VIAL SQ PRN ×3 (08:14→17:28)
[2017-12-24] MEDS: PANTOPRAZOLE 40 MG TABLET.DR PO SCH (08:15)
[2017-12-24] MEDS: BLOOD SUGAR DIAGNOSTIC 1 EACH STRIP IN SCH ×3 (08:15→17:23)
[2017-12-24] MEDS: DIVALPROEX SODIUM 250 MG TABLET.DR PO SCH (08:25)
[2017-12-24] MEDS: LEVETIRACETAM (250 MG) 250 MG TABLET PO SCH (08:25)
[2017-12-24] MEDS: Fenofibrate 48 MG TABLET PO SCH (08:26)
[2017-12-24] MEDS: POLYETHYLENE GLYCOL 3350 17 GM POWD.PACK PO SCH (08:26)
[2017-12-24] MEDS: NICOTINE PATCH (21MG) 21 MG PATCH.TD24 TD SCH (08:26)
[2017-12-24] MEDS: [UNRECOGNIZED DRUG - OTHER] PO SCH ×2 (08:26→17:21)
[2017-12-24] MEDS: METOPROLOL TARTRATE 25 MG TABLET PO SCH ×2 (08:27→17:23)
[2017-12-24] MEDS: DEXAMETHASONE 1 MG TABLET PO SCH (08:27)
[2017-12-24] MEDS: ENOXAPARIN SODIUM 80 MG/0.8 ML DISP.SYRIN SQ SCH (08:46)
[2017-12-24] MEDS ORDERED: *INSULIN REGULAR(HUMULIN R)HUM 100 UNIT/ML VIAL SQ PRN (09:00)
[2017-12-24] MEDS ORDERED: DEXTROSE 50%-WATER 50 ML DISP.SYRIN IV PRN (09:00)
[2017-12-24] MEDS ORDERED: INSULIN GLARGINE, 100 UNIT/ML CARTRIDGE SQ SCH (10:00)
[2017-12-24 13:43] LABS: INR 1.14 (0.87-1.13)
--- NOTE | 2017-12-24 15:38 | NUR ---
barron reyes notified regarding afb results and also infection control aware and ok d/c isolation.cm alerted also pt. possible discharge per md.
[2017-12-24 17:23] VITALS: BP 113/71
[2017-12-24] MEDS: WARFARIN SODIUM 5 MG TABLET PO SCH (17:29)
--- NOTE | 2017-12-24 19:00 | NUR ---
RN MS NOTES PT IN BED, RESTING, DENIES PAIN, NOT IN DISTRESS, ON O2 AT 4LPM VIA N/C, O2 SAT AT 98%, SEEN BY DR. BARCENAS, SPUTUM RESULTS NEGATIVE FOR TB, DISCHARGE ORDER GIVEN BY DR. BARCENSA, PT INFORMED, PT 'S SISTER INFORMED, DISCHARGE AND MEDICATION INSTRUCTIONS PROVIDED TO PT, VERBALIZED UNDERSTANDING, BELONGINGS ACCOUNTED FOR, REPORT GIVEN TO DOROTHEA COX OF [facility], AWAITING AMBULANCE TRANSPORTATION.
--- NOTE | 2017-12-24 19:45 | NUR ---
AMBULANCE ARRIVED TO REGISTER CLERK THE PATIENT, REPORT GIVEN TO EMT, PATIENT'S SISTER VANESSA NOTIFIED OF PATIENT ABOUT TO LEAVE THE UNIT
--- NOTE | 2017-12-24 19:58 | NUR ---
PATIENT LEFT THE UNIT WITH THE AMBULANCE
== END 2017-12-24 20:42 | DRG 137 ==
LOC: MEDSG1 18:03
PROVIDERS: ADMIT Hospitalist; ATTEND Hospitalist
PROC: B548ZZA Ultrasonography of Superior Vena Cava, Guidance (ICD-10-PCS; principal; 2017-12-23)
PROC: 02HV33Z Insertion of Infusion Device into Superior Vena Cava, Percutaneous Approach (ICD-10-PCS; principal; 2017-12-23)
DX: J15.6 Pneumonia due to other Gram-negative bacteria (principal); C79.31 Secondary malignant neoplasm of brain; D68.69 Other thrombophilia; E44.0 Moderate protein-calorie malnutrition; I82.622 Acute embolism and thrombosis of deep veins of left upper extremity; J90 Pleural effusion, not elsewhere classified; C34.90 Malignant neoplasm of unspecified part of unspecified bronchus or lung; E83.42 Hypomagnesemia; E87.2 Acidosis; J44.0 Chronic obstructive pulmonary disease with (acute) lower respiratory infection; I69.354 Hemiplegia and hemiparesis following cerebral infarction affecting left non-dominant side; R04.2 Hemoptysis; G47.33 Obstructive sleep apnea (adult) (pediatric); G40.909 Epilepsy, unspecified, not intractable, without status epilepticus; D63.8 Anemia in other chronic diseases classified elsewhere; I10 Essential (primary) hypertension; E66.9 Obesity, unspecified; Z68.30 Body mass index [BMI] 30.0-30.9, adult; E11.65 Type 2 diabetes mellitus with hyperglycemia; E78.1 Pure hyperglyceridemia; E78.5 Hyperlipidemia, unspecified; F41.9 Anxiety disorder, unspecified; Z72.0 Tobacco use
CPT/HCPCS: 36415; 36569; 36600; 71045-TC; 80048-TC; 80061-TC; 80076-TC; 80202-TC; 82247-TC; 82248-TC; 82728-TC; 82962-TC; 83540-TC; 83605-TC; 83735-TC; 84100-TC; 85025-TC; 85610-TC; 87116; 87206; A4218; A4606; G0378; J1650; J1815; J2405; J2543; J3370; J3475; J7030; J7060; J8540